=== PATIENT | female | born 1935 | race Caucasian/White ===

== ENCOUNTER 2019-11-30 12:09 | Inpatient (IN) ==
[2019-11-30] MEDS ORDERED: DIPH/TET/ACEL PERT BOOSTER VACCINE 0.5 ML VIAL IM ONE (12:46)
[2019-11-30 13:51] LABS: Basophils % 0.2 % (0.0-0.8); Eosinophils # 0.1 10*3/uL (0.0-0.87); Eosinophils % 0.6 % (0.00-10.9); Hematocrit 39.6 VOL% (35.7-47.0); Hemoglobin 13.7 GM/DL (12.0-16.0); Immature Granulocytes % 0.2 %; Immature Granulocytes Absolute 0.02 #; Lymphocytes # 0.9 10*3/uL (1.4-4.0); Lymphocytes % 9.9 % (21.3-54.2); Mean Corpuscular HGB Conc 34.6 GM/DL (32-36); Mean Corpuscular Volume 99.2 FL (87-102); Mean Platelet Volume 10.5 FL (9.6-12.0); Monocytes % 5.3 % (1.7-12.7); Neutrophils % 83.8 % (38.7-73.9); Platelet Count 134 T/CUMM (130-400); Red Blood Count 3.99 MC/CUMM (3.8-5.5); Red Cell Distribution Width 11.9 % (9.3-17.3); White Blood Count 8.7 T/CUMM (4-12)
[2019-11-30 14:04] LABS: INR 1.9; Partial Thromboplastin Time 32.8 SECS (23.9-33.8)
[2019-11-30 14:17] LABS: Albumin 3.6 G/DL (3.4-5.0); Bilirubin,Total 0.5 MG/DL (0.2-1.0); Calcium 9.7 MG/DL (8.5-10.1); Total Protein 7.2 G/DL (6.4-8.3)
[2019-11-30] MEDS ORDERED: SODIUM CHLORIDE 0.9% 500 ML IV STA (14:37)
[2019-11-30] MEDS ORDERED: HYDROmorphone 2 MG/1 ML VIAL IV STA ×2 (14:37→15:19)
[2019-11-30] MEDS ORDERED: ONDANSETRON 4 MG/2 ML VIAL IV STA (14:37)
[2019-11-30] MEDS ORDERED: HYDROmorphone 2 MG/1 ML VIAL IV PRN ×2 (15:14)
[2019-11-30] MEDS ORDERED: ACETAMINOPHEN 325 MG TABLET PO PRN (15:14)
[2019-11-30] MEDS ORDERED: ONDANSETRON 4 MG/2 ML VIAL IV PRN (15:14)
[2019-11-30] MEDS ORDERED: BISACODYL 5 MG TABLET PO PRN (15:14)
[2019-11-30 16:51] LABS: Risk Ratio 2.02; VLDL CHOLESTEROL 14.8 MG/DL
[2019-11-30] MEDS: LACTATED RINGERS 1,000 ML IV SCH (18:44)
[2019-11-30] MEDS: AMITRIPTYLINE 10 MG TABLET PO SCH (21:00)
[2019-11-30] MEDS: NIACIN 500 MG TABLET PO SCH (21:00)
[2019-11-30] MEDS: SIMVASTATIN 10 MG TABLET PO SCH (21:00)
[2019-11-30] MEDS: DILTIAZEM CD 120 MG CAPSULE PO SCH (21:01)
[2019-11-30] MEDS: LOSARTAN 50 MG TABLET PO SCH (21:01)
[2019-11-30] MEDS: GABAPENTIN 100 MG CAPSULE PO SCH (21:01)
[2019-11-30] MEDS: MAGNESIUM CHLORIDE 64 MG TABLET PO SCH (21:02)
[2019-12-01] MEDS: KETOROLAC 15 MG/1 ML VIAL IV PRN ×2 (00:26→06:52)
[2019-12-01] MEDS ORDERED: ceFAZolin 1,000 MG in SYRINGE 1 EACH IV ONE (06:00)
[2019-12-01] MEDS: LACTATED RINGERS 1,000 ML IV SCH ×2 (06:02→19:30)
[2019-12-01 06:28] LABS: Basophils % 0.2 % (0.0-0.8); Eosinophils # 0.1 10*3/uL (0.0-0.87); Eosinophils % 1.3 % (0.00-10.9); Hematocrit 33.8 VOL% (35.7-47.0); Hemoglobin 11.2 GM/DL (12.0-16.0); Immature Granulocytes % 0.4 %; Immature Granulocytes Absolute 0.02 #; Lymphocytes % 23.3 % (21.3-54.2); Mean Corpuscular HGB Conc 33.1 GM/DL (32-36); Mean Platelet Volume 10.7 FL (9.6-12.0); Monocytes % 10.1 % (1.7-12.7); Neutrophils % 64.7 % (38.7-73.9); Platelet Count 109 T/CUMM (130-400); Red Blood Count 3.25 MC/CUMM (3.8-5.5); Red Cell Distribution Width 11.9 % (9.3-17.3); White Blood Count 4.5 T/CUMM (4-12)
[2019-12-01 06:39] LABS: INR 1.4; PT Patient Result 15.1 SECS (9.8-11.9)
[2019-12-01 07:02] LABS: Albumin 3.3 G/DL (3.4-5.0); Bilirubin,Total 0.6 MG/DL (0.2-1.0); Calcium 9.4 MG/DL (8.5-10.1); Osmolality,Calculated 270.1 MOS/KG (273-304); Total Protein 6.4 G/DL (6.4-8.3)
[2019-12-01] MEDS: DILTIAZEM CD 120 MG CAPSULE PO SCH ×2 (08:11→21:33)
[2019-12-01] MEDS: TRIAMTERENE/HCTZ 37.5-25 MG TABLET PO SCH (08:11)
[2019-12-01] MEDS: METOPROLOL TARTRATE 25 MG TABLET PO SCH (08:11)
[2019-12-01] MEDS: LOSARTAN 50 MG TABLET PO SCH ×2 (08:11→21:33)
[2019-12-01] MEDS ORDERED: PROMETHAZINE 25 MG/1 ML VIAL IM PRN (11:37)
[2019-12-01] MEDS ORDERED: LACTULOSE 20 GM/30 ML UDCUP PO PRN (11:37)
[2019-12-01] MEDS ORDERED: BISACODYL 10 MG SUPP RECTAL PRN (11:37)
[2019-12-01] MEDS ORDERED: MAGNESIUM HYDROXIDE SUSP 30 ML UDCUP PO PRN (11:37)
[2019-12-01] MEDS ORDERED: diphenhydrAMINE CAP 25 MG CAPSULE PO PRN (11:37)
[2019-12-01] MEDS ORDERED: fentaNYL 100 MCG/2 ML VIAL ONE (11:47)
[2019-12-01] MEDS ORDERED: SEVOFLURANE 1 UNIT/15 MINUTE INH ONE (11:47)
[2019-12-01] MEDS ORDERED: ONDANSETRON 4 MG/2 ML VIAL ONE ×2 (11:47→12:14)
[2019-12-01] MEDS ORDERED: propofoL 200 MG/20 ML VIAL IV ONE (11:47)
[2019-12-01] MEDS ORDERED: ROCURONIUM 100 MG/10 ML VIAL IV ONE (11:48)
[2019-12-01] MEDS ORDERED: ONDANSETRON 4 MG/2 ML VIAL IV PRN (12:12)
[2019-12-01] MEDS ORDERED: HYDROmorphone 2 MG/1 ML VIAL ONE (12:14)
[2019-12-01] MEDS: HYDROmorphone 2 MG/1 ML VIAL IV PRN ×4 (12:15→12:34)
[2019-12-01] MEDS ORDERED: ACETAMINOPHEN 1,000 MG/100 ML VIAL IV ONE (12:45)
[2019-12-01] MEDS ORDERED: ACETAMINOPHEN INJ 1,000 MG in PREMIX 1 EACH IV ONE (12:51)
[2019-12-01] MEDS: GABAPENTIN 100 MG CAPSULE PO SCH ×3 (15:46→21:26)
[2019-12-01] MEDS: SERTRALINE 50 MG TABLET PO SCH (15:48)
[2019-12-01] MEDS: PANTOPRAZOLE 40 MG TABLET PO SCH (15:48)
[2019-12-01] MEDS: MAGNESIUM CHLORIDE 64 MG TABLET PO SCH ×2 (15:48→21:33)
[2019-12-01] MEDS: ceFAZolin 1,000 MG in SYRINGE 1 EACH IV SCH ×2 (15:49→21:32)
[2019-12-01] MEDS ORDERED: WARFARIN 2.5 MG TABLET PO SCH (18:00)
[2019-12-01] MEDS: NIACIN 500 MG TABLET PO SCH (21:32)
[2019-12-01] MEDS: AMITRIPTYLINE 10 MG TABLET PO SCH (21:33)
[2019-12-01] MEDS: SIMVASTATIN 10 MG TABLET PO SCH (21:33)
[2019-12-02] MEDS: ceFAZolin 1,000 MG in SYRINGE 1 EACH IV SCH (06:16)
[2019-12-02] MEDS: SERTRALINE 50 MG TABLET PO SCH (08:49)
[2019-12-02] MEDS: DILTIAZEM CD 120 MG CAPSULE PO SCH ×2 (08:49→21:36)
[2019-12-02] MEDS: GABAPENTIN 100 MG CAPSULE PO SCH ×3 (08:49→21:34)
[2019-12-02] MEDS: MAGNESIUM CHLORIDE 64 MG TABLET PO SCH ×2 (08:50→21:39)
[2019-12-02] MEDS: TRIAMTERENE/HCTZ 37.5-25 MG TABLET PO SCH (08:50)
[2019-12-02] MEDS: LOSARTAN 50 MG TABLET PO SCH ×2 (08:50→21:34)
[2019-12-02] MEDS: PANTOPRAZOLE 40 MG TABLET PO SCH ×2 (08:50→09:38)
[2019-12-02] MEDS: METOPROLOL TARTRATE 25 MG TABLET PO SCH (08:50)
[2019-12-02] MEDS ORDERED: WARFARIN 5 MG TABLET PO SCH (18:00)
[2019-12-02] MEDS: SIMVASTATIN 10 MG TABLET PO SCH (21:34)
[2019-12-02] MEDS: AMITRIPTYLINE 10 MG TABLET PO SCH (21:35)
[2019-12-02] MEDS: NIACIN 500 MG TABLET PO SCH (21:39)
[2019-12-03] MEDS: GABAPENTIN 100 MG CAPSULE PO SCH (10:32)
[2019-12-03] MEDS: PANTOPRAZOLE 40 MG TABLET PO SCH ×2 (10:32→10:44)
[2019-12-03] MEDS: DILTIAZEM CD 120 MG CAPSULE PO SCH (10:32)
[2019-12-03] MEDS: SERTRALINE 50 MG TABLET PO SCH (10:32)
[2019-12-03] MEDS: METOPROLOL TARTRATE 25 MG TABLET PO SCH (10:33)
[2019-12-03] MEDS: TRIAMTERENE/HCTZ 37.5-25 MG TABLET PO SCH (10:33)
[2019-12-03] MEDS: LOSARTAN 50 MG TABLET PO SCH (10:33)
[2019-12-03] MEDS: MAGNESIUM CHLORIDE 64 MG TABLET PO SCH (10:33)
[2019-12-03 13:05] VITALS: BP 146/71
== END 2019-12-03 13:55 | disposition home health service (06) | DRG 493 ==
LOC: EDUNIT# → EDBD → N.ED 12:09 → N.EDINP 15:14 → N.3E 16:49
PROVIDERS: ADMIT Surgery; ATTEND Surgery

== ENCOUNTER 2020-05-04 22:34 | Inpatient (IN) ==
[2020-05-04] MEDS ORDERED: SODIUM CHLORIDE 0.9% 500 ML IV STA (22:56)
[2020-05-04] MEDS ORDERED: HYDROmorphone 2 MG/1 ML VIAL IV STA (22:56)
[2020-05-04] MEDS ORDERED: ONDANSETRON 4 MG/2 ML VIAL IV STA (22:56)
[2020-05-04 23:41] LABS: Basophils % 0.1 % (0.0-0.8); Eosinophils % 0.3 % (0.00-10.9); Hematocrit 32.7 VOL% (35.7-47.0); Hemoglobin 10.8 GM/DL (12.0-16.0); Immature Granulocytes % 0.6 %; Immature Granulocytes Absolute 0.06 #; Lymphocytes # 0.7 10*3/uL (1.4-4.0); Lymphocytes % 6.1 % (21.3-54.2); Mean Corpuscular Volume 102.5 FL (87-102); Mean Platelet Volume 10.2 FL (9.6-12.0); Monocytes % 5.3 % (1.7-12.7); Neutrophils % 87.6 % (38.7-73.9); Platelet Count 133 T/CUMM (130-400); Red Blood Count 3.19 MC/CUMM (3.8-5.5); Red Cell Distribution Width 14.8 % (9.3-17.3); White Blood Count 10.9 T/CUMM (4-12)
[2020-05-04 23:54] LABS: PT Patient Result 20.4 SECS (9.8-11.9)
[2020-05-05 00:04] LABS: Albumin 3.7 G/DL (3.4-5.0); Bilirubin,Total 0.6 MG/DL (0.2-1.0); Calcium 9.5 MG/DL (8.5-10.1); Osmolality,Calculated 279.5 MOS/KG (273-304); Total Protein 6.6 G/DL (6.4-8.3)
[2020-05-05 00:07] LABS: Bilirubin,Urine Negative (Negative); Blood, Urine Negative (Negative); Glucose,Urine (UA) Negative (Negative); Ketones,Urine Negative (Negative); Mucus,Urine Occasional /LPF (Occasional); Nitrite,Urine Negative (Negative); Protein,Urine Negative; RBC,Urine 1 /HPF (0-4); Urine Appearance CLEAR (Clear); Urine Color Yellow (Yellow); Urine Specific Gravity 1.017 (1.001-1.035); Urine Urobilinogen < 2.0 EU/DL (0.2-1.0); WBC,Urine <1 /HPF (0-6)
[2020-05-05] MEDS ORDERED: diphenhydrAMINE CAP 25 MG CAPSULE PO PRN (00:14)
[2020-05-05] MEDS ORDERED: NICOTINE 21 MG/24 HR PATCH TRANSDERM PRN (00:14)
[2020-05-05] MEDS ORDERED: hydrALAZINE 20 MG/1 ML VIAL IV PRN (00:14)
[2020-05-05] MEDS ORDERED: GLUCAGON 1 MG VIAL IM PRN (00:14)
[2020-05-05] MEDS ORDERED: ONDANSETRON 4 MG/2 ML VIAL IV PRN (00:14)
[2020-05-05] MEDS ORDERED: guaiFENesin/DM ER 600-30 MG TABLET PO PRN (00:14)
[2020-05-05] MEDS ORDERED: DEXTROSE 50% 25 GM/50 ML VIAL IV PRN (00:14)
[2020-05-05] MEDS ORDERED: PROMETHAZINE 25 MG/1 ML VIAL IM PRN (00:14)
[2020-05-05] MEDS: SODIUM CHLORIDE 0.9% 1,000 ML IV SCH ×2 (01:09→13:00)
[2020-05-05] MEDS: MORPHINE 4 MG/1 ML VIAL IV PRN ×2 (02:03→05:52)
[2020-05-05 05:22] LABS: Basophils % 0.3 % (0.0-0.8); Eosinophils % 0.4 % (0.00-10.9); Hematocrit 27.6 VOL% (35.7-47.0); Immature Granulocytes % 0.3 %; Immature Granulocytes Absolute 0.02 #; Lymphocytes # 0.9 10*3/uL (1.4-4.0); Lymphocytes % 12.9 % (21.3-54.2); Mean Corpuscular HGB Conc 32.6 GM/DL (32-36); Mean Corpuscular Volume 103.8 FL (87-102); Monocytes % 8.7 % (1.7-12.7); Neutrophils % 77.4 % (38.7-73.9); Platelet Count 107 T/CUMM (130-400); Red Blood Count 2.66 MC/CUMM (3.8-5.5); White Blood Count 7.1 T/CUMM (4-12)
[2020-05-05 05:33] LABS: INR 1.8; PT Patient Result 19.2 SECS (9.8-11.9); Partial Thromboplastin Time 32.2 SECS (23.9-33.8)
[2020-05-05 05:45] LABS: Calcium 8.8 MG/DL (8.5-10.1); Osmolality,Calculated 279.4 MOS/KG (273-304)
[2020-05-05] MEDS ORDERED: SODIUM CHLORIDE 0.9% 1,000 ML IV PRN ×3 (06:51→15:53)
[2020-05-05] MEDS ORDERED: ceFAZolin 2,000 MG in PREMIX 1 EACH IV ONE (06:53)
[2020-05-05] MEDS ORDERED: ACETAMINOPHEN 1,000 MG/100 ML VIAL IV ONE (08:23)
[2020-05-05] MEDS ORDERED: LACTULOSE 20 GM/30 ML UDCUP PO PRN (09:11)
[2020-05-05] MEDS ORDERED: BISACODYL 10 MG SUPP RECTAL PRN (09:11)
[2020-05-05] MEDS ORDERED: ACETAMINOPHEN 325 MG TABLET PO PRN (09:11)
[2020-05-05] MEDS ORDERED: MORPHINE 4 MG/1 ML VIAL IV PRN ×2 (09:14→09:42)
[2020-05-05] MEDS ORDERED: CALCIUM CHLORIDE 1,000 MG/10 ML VIAL IV ONE (09:26)
[2020-05-05] MEDS ORDERED: propofoL 200 MG/20 ML VIAL IV ONE (09:26)
[2020-05-05] MEDS ORDERED: ALBUMIN 5% 12.5 GM/250 ML VIAL IV ONE (09:26)
[2020-05-05] MEDS ORDERED: SEVOFLURANE 1 UNIT/15 MINUTE INH ONE (09:26)
[2020-05-05] MEDS ORDERED: LIDOCAINE 2% 5 ML VIAL ONE (09:26)
[2020-05-05] MEDS ORDERED: LACTATED RINGERS 1,000 ML IV ONE (09:27)
[2020-05-05] MEDS ORDERED: KETOROLAC 30 MG/1 ML VIAL ONE (09:27)
[2020-05-05] MEDS ORDERED: ROCURONIUM 100 MG/10 ML VIAL IV ONE (09:27)
[2020-05-05] MEDS ORDERED: PHENYLEPHRINE 10 MG/1 ML VIAL IV ONE (09:27)
[2020-05-05] MEDS ORDERED: fentaNYL 100 MCG/2 ML VIAL ONE (09:27)
[2020-05-05] MEDS ORDERED: GLYCOPYRROLATE 0.4 MG/2 ML VIAL ONE (09:27)
[2020-05-05] MEDS ORDERED: SUCCINYLCHOLINE 200 MG/10 ML VIAL ONE (09:27)
[2020-05-05] MEDS ORDERED: KETAMINE 500 MG/10 ML VIAL ONE (09:27)
[2020-05-05] MEDS ORDERED: DEXAMETHASONE 4 MG/1 ML VIAL ONE (09:28)
[2020-05-05] MEDS ORDERED: ONDANSETRON 4 MG/2 ML VIAL ONE (09:28)
[2020-05-05] MEDS ORDERED: NEOSTIGMINE 10 MG/10 ML VIAL ONE (09:28)
[2020-05-05] MEDS: PANTOPRAZOLE 40 MG VIAL IV SCH (11:13)
[2020-05-05] MEDS ORDERED: TUBERCULIN SKIN TEST 0.1 ML SYRINGE INTRADERM ONE (11:15)
[2020-05-05] MEDS ORDERED: ENOXAPARIN 40 MG/0.4 ML SYRINGE SUBCUT SCH (12:30)
[2020-05-05] MEDS: ceFAZolin 1,000 MG in SYRINGE 1 EACH IV SCH (14:16)
[2020-05-05] MEDS: GABAPENTIN 100 MG CAPSULE PO SCH ×2 (15:37→22:08)
[2020-05-05] MEDS: DILTIAZEM CD 120 MG CAPSULE PO SCH (22:06)
[2020-05-05] MEDS: METOPROLOL TARTRATE 25 MG TABLET PO SCH (22:08)
[2020-05-05] MEDS: SERTRALINE 50 MG TABLET PO SCH (22:09)
[2020-05-05] MEDS: SIMVASTATIN 10 MG TABLET PO SCH (22:09)
[2020-05-06] MEDS: ceFAZolin 1,000 MG in SYRINGE 1 EACH IV SCH ×2 (00:10→06:12)
[2020-05-06 01:30] LABS: Basophils % 0.2 % (0.0-0.8); Hematocrit 29.4 VOL% (35.7-47.0); Hemoglobin 9.7 GM/DL (12.0-16.0); Immature Granulocytes % 0.2 %; Immature Granulocytes Absolute 0.01 #; Lymphocytes # 0.7 10*3/uL (1.4-4.0); Lymphocytes % 10.1 % (21.3-54.2); Mean Corpuscular Volume 97.7 FL (87-102); Mean Platelet Volume 10.5 FL (9.6-12.0); Monocytes % 7.9 % (1.7-12.7); Neutrophils % 81.6 % (38.7-73.9); Red Blood Count 3.01 MC/CUMM (3.8-5.5); Red Cell Distribution Width 16.7 % (9.3-17.3); White Blood Count 6.5 T/CUMM (4-12)
[2020-05-06 01:34] LABS: Platelet Count 89 T/CUMM (130-400)
[2020-05-06 01:41] LABS: INR 1.4; PT Patient Result 15.1 SECS (9.8-11.9)
[2020-05-06 01:53] LABS: Calcium 8.8 MG/DL (8.5-10.1)
[2020-05-06 02:14] LABS: Hypochromasia 2+; Microcytosis 1+; Platelet Estimate Decreased
[2020-05-06] MEDS: GABAPENTIN 100 MG CAPSULE PO SCH ×3 (08:47→21:13)
[2020-05-06] MEDS: DILTIAZEM CD 120 MG CAPSULE PO SCH ×2 (08:48→21:10)
[2020-05-06] MEDS: METOPROLOL TARTRATE 25 MG TABLET PO SCH ×2 (08:48→21:13)
[2020-05-06] MEDS: PANTOPRAZOLE 40 MG VIAL IV SCH (08:49)
[2020-05-06] MEDS: LOSARTAN 50 MG TABLET PO SCH (08:49)
[2020-05-06] MEDS: SODIUM CHLORIDE 0.9% 1,000 ML IV SCH (09:00)
[2020-05-06] MEDS ORDERED: ENOXAPARIN 40 MG/0.4 ML SYRINGE SUBCUT SCH (12:30)
[2020-05-06] MEDS: ENOXAPARIN 40 MG/0.4 ML SYRINGE SUBCUT SCH (12:33)
[2020-05-06] MEDS: SIMVASTATIN 10 MG TABLET PO SCH (21:10)
[2020-05-06] MEDS: SERTRALINE 50 MG TABLET PO SCH (21:13)
[2020-05-07 06:55] LABS: Basophils % 0.3 % (0.0-0.8); Eosinophils # 0.3 10*3/uL (0.0-0.87); Eosinophils % 4.1 % (0.00-10.9); Hematocrit 29.7 VOL% (35.7-47.0); Hemoglobin 9.6 GM/DL (12.0-16.0); Immature Granulocytes % 0.3 %; Immature Granulocytes Absolute 0.02 #; Lymphocytes # 1.4 10*3/uL (1.4-4.0); Lymphocytes % 19.7 % (21.3-54.2); Mean Corpuscular HGB Conc 32.3 GM/DL (32-36); Mean Platelet Volume 10.7 FL (9.6-12.0); Monocytes % 9.8 % (1.7-12.7); Neutrophils % 65.8 % (38.7-73.9); Red Blood Count 2.97 MC/CUMM (3.8-5.5); Red Cell Distribution Width 16.7 % (9.3-17.3); White Blood Count 7.1 T/CUMM (4-12)
[2020-05-07 06:58] LABS: Platelet Count 93 T/CUMM (130-400)
[2020-05-07 07:06] LABS: INR 1.1; PT Patient Result 12.2 SECS (9.8-11.9)
[2020-05-07 07:24] LABS: Macrocytosis Slight; Platelet Estimate Decreased
[2020-05-07] MEDS: SODIUM CHLORIDE 0.9% 1,000 ML IV SCH (07:35)
[2020-05-07] MEDS: DILTIAZEM CD 120 MG CAPSULE PO SCH ×2 (09:27→21:45)
[2020-05-07] MEDS: METOPROLOL TARTRATE 25 MG TABLET PO SCH ×2 (09:27→21:46)
[2020-05-07] MEDS: LOSARTAN 50 MG TABLET PO SCH (09:27)
[2020-05-07] MEDS: GABAPENTIN 100 MG CAPSULE PO SCH ×3 (09:28→21:46)
[2020-05-07] MEDS: PANTOPRAZOLE 40 MG VIAL IV SCH (09:30)
[2020-05-07] MEDS: MAGNESIUM HYDROXIDE SUSP 30 ML UDCUP PO PRN (12:07)
[2020-05-07] MEDS: ENOXAPARIN 40 MG/0.4 ML SYRINGE SUBCUT SCH (12:08)
[2020-05-07] MEDS: SIMVASTATIN 10 MG TABLET PO SCH (21:46)
[2020-05-07] MEDS: SERTRALINE 50 MG TABLET PO SCH (21:46)
[2020-05-08 06:11] LABS: Basophils % 0.2 % (0.0-0.8); Eosinophils # 0.3 10*3/uL (0.0-0.87); Eosinophils % 3.9 % (0.00-10.9); Hemoglobin 9.3 GM/DL (12.0-16.0); Immature Granulocytes % 0.5 %; Immature Granulocytes Absolute 0.03 #; Lymphocytes # 1.1 10*3/uL (1.4-4.0); Mean Corpuscular HGB Conc 32.1 GM/DL (32-36); Mean Corpuscular Volume 100.7 FL (87-102); Mean Platelet Volume 10.8 FL (9.6-12.0); Monocytes % 8.9 % (1.7-12.7); Neutrophils % 69.5 % (38.7-73.9); Platelet Count 102 T/CUMM (130-400); Red Blood Count 2.88 MC/CUMM (3.8-5.5); Red Cell Distribution Width 16.2 % (9.3-17.3); White Blood Count 6.6 T/CUMM (4-12)
[2020-05-08 06:20] LABS: INR 1.1; PT Patient Result 11.4 SECS (9.8-11.9)
[2020-05-08] MEDS: PANTOPRAZOLE 40 MG VIAL IV SCH (08:43)
[2020-05-08] MEDS: GABAPENTIN 100 MG CAPSULE PO SCH ×3 (08:44→20:33)
[2020-05-08] MEDS: METOPROLOL TARTRATE 25 MG TABLET PO SCH ×2 (08:44→20:41)
[2020-05-08] MEDS: DILTIAZEM CD 120 MG CAPSULE PO SCH ×2 (08:46→20:40)
[2020-05-08] MEDS: LOSARTAN 50 MG TABLET PO SCH (08:47)
[2020-05-08] MEDS: ENOXAPARIN 40 MG/0.4 ML SYRINGE SUBCUT SCH (11:51)
[2020-05-08] MEDS: SERTRALINE 50 MG TABLET PO SCH (20:33)
[2020-05-08] MEDS: SIMVASTATIN 10 MG TABLET PO SCH (20:33)
[2020-05-09 07:02] LABS: Basophils % 0.2 % (0.0-0.8); Eosinophils # 0.2 10*3/uL (0.0-0.87); Eosinophils % 3.2 % (0.00-10.9); Hematocrit 27.7 VOL% (35.7-47.0); Immature Granulocytes % 0.3 %; Immature Granulocytes Absolute 0.02 #; Lymphocytes # 1.1 10*3/uL (1.4-4.0); Lymphocytes % 18.3 % (21.3-54.2); Mean Corpuscular HGB Conc 32.5 GM/DL (32-36); Mean Corpuscular Volume 100.7 FL (87-102); Mean Platelet Volume 10.4 FL (9.6-12.0); Monocytes % 7.5 % (1.7-12.7); Neutrophils % 70.5 % (38.7-73.9); Platelet Count 113 T/CUMM (130-400); Red Blood Count 2.75 MC/CUMM (3.8-5.5); Red Cell Distribution Width 15.7 % (9.3-17.3)
[2020-05-09 07:20] LABS: Calcium 8.7 MG/DL (8.5-10.1); Osmolality,Calculated 273.8 MOS/KG (273-304)
[2020-05-09] MEDS: DILTIAZEM CD 120 MG CAPSULE PO SCH (08:49)
[2020-05-09] MEDS: GABAPENTIN 100 MG CAPSULE PO SCH ×2 (08:50→16:17)
[2020-05-09] MEDS: METOPROLOL TARTRATE 25 MG TABLET PO SCH (08:50)
[2020-05-09] MEDS: LOSARTAN 50 MG TABLET PO SCH (08:50)
[2020-05-09] MEDS: PANTOPRAZOLE 40 MG VIAL IV SCH (08:50)
[2020-05-09] MEDS: ENOXAPARIN 40 MG/0.4 ML SYRINGE SUBCUT SCH (11:18)
[2020-05-09 11:56] VITALS: BP 127/55
[2020-05-09] MEDS: MAGNESIUM HYDROXIDE SUSP 30 ML UDCUP PO PRN (14:12)
[2020-05-09] MEDS ORDERED: WARFARIN 5 MG TABLET PO SCH (18:00)
[2020-05-10] MEDS ORDERED: WARFARIN 5 MG TABLET PO SCH (18:00)
== END 2020-05-09 17:45 | disposition swing bed (61) | DRG 481 ==
LOC: EDBD → EDUNIT# → N.ED 22:34 → N.EDINP 05-05 00:14 → SUATTDRO 05-05 00:14 → N.EDINP 05-05 01:39 → N.3E 05-05 01:52
PROVIDERS: ADMIT Internal Medicine; ATTEND Internal Medicine